=== PATIENT | female | born 1965 | race Caucasian/White ===

== ENCOUNTER 2017-02-17 21:35 | Emergency (ER) | payer BC ==
[2017-02-17 22:05] LABS: BASOPHILS 0.3 %; BASOPHILS ABSOLUTE 0.03 10/3/uL (0.0-0.16); EOSINOPHILS 1.1 %; ER CBC TAT 0 Hrs 00 Mins; HEMATOCRIT 39.8 % (36.0-48.0); HEMOGLOBIN 13.5 g/dL (12.0-16.0); IMMATURE GRANULOCYTES 0.1 %; IMMATURE GRANULOCYTES ABSOLUTE 0.01 10/3/uL (0.0-0.11); LYMPHOCYTES 21.2 %; LYMPHOCYTES ABSOLUTE 1.85 10/3/uL (0.67-4.30); MEAN CORPUS HGB CONC 33.9 g/dL (32.0-36.0); MEAN CORPUSCULAR HEMOGLOB 29.2 pg (26.0-34.0); MEAN PLATELET VOLUME 9.7 fL (9.2-13.0); MONOCYTES 6.2 %; MONOCYTES ABSOLUTE 0.54 10/3/uL (0.21-1.20); NEUTROPHILS 71.1 %; PLATELET COUNT 198 10/3/uL (150-400); RBC DISTRIBUTION WIDTH 13.6 % (12.0-16.0); RED CELL COUNT 4.63 10/6/uL (4.0-5.6)
[2017-02-17 22:07] LABS: MANUAL DIFF NO %; WHITE BLOOD CELLS 8.7 10/3/uL (4.5-10.5)
[2017-02-17 22:17] LABS: ASCORBIC ACID (UR NOT ORDER) 40 (NEG); BILIRUBIN, URINE NEGATIVE (NEG); BUN (BLOOD UREA NITROGEN) 17 MG/DL (6-23); CALCIUM, SERUM 9.9 MG/DL (8.5-10.4); CHLORIDE, SERUM 112 MMOL/L (96-112); CO2 (CARBON DIOXIDE) 26 MMOL/L (24-34); CREATININE 1.31 MG/DL (0.55-1.02); ER URINALYSIS TAT 0 Hrs 00 Mins; GFR AFRICAN AMERICAN 54 ML/MIN (>=60); GFR NON AFRICAN AMERICAN 46 ML/MIN (>=60); GLUCOSE, SERUM 92 MG/DL (60-99); KETONE, URINE NEGATIVE (NEG); LEUKOCYTE ESTERASE(NOT OR NEG (NEG); NITRITE (URINE) NEG (NEG); POTASSIUM, SERUM 3.5 MMOL/L (3.5-5.3); SODIUM, SERUM 145 MMOL/L (135-148); WBC (NOT ORDERED) (RFLEX) 3 (0-5)
== END 2017-02-18 02:20 | disposition home or self-care (01) ==
LOC: ER 21:35
PROVIDERS: Emergency Medicine
DX: N13.2 Hydronephrosis with renal and ureteral calculous obstruction (principal); K50.90 Crohn's disease, unspecified, without complications; Z87.442 Personal history of urinary calculi
CPT/HCPCS: 74000; 74176; 80048; 81001; 85025; 96374; 96375; 99284; J1170; J1885; J2405